=== PATIENT | male | born 1955 | race Caucasian/White ===

== ENCOUNTER 2023-02-19 12:46 | Emergency (ER) | payer MEDICARE ==
[~2023-02-19] VITALS: Ht 182.9 cm; Wt 72.6 kg
[2023-02-19] MEDS ORDERED: CEPH500 PO ×2 (17:02→17:13)
[2023-02-19 17:07] VITALS: BP 116/82
== END 2023-02-19 17:24 | disposition home or self-care (01) ==
LOC: ER 12:46
DX: S66.222A Laceration of extensor muscle, fascia and tendon of left thumb at wrist and hand level, initial encounter (principal); W29.3XXA Contact with powered garden and outdoor hand tools and machinery, initial encounter; Z23 Encounter for immunization
CPT/HCPCS: 12002; 73140; 90471; 90714; 99284-25; A9270